=== PATIENT | female | born 1980 | race American Indian/Alaskan Native ===

== ENCOUNTER 2017-07-15 12:58 | Emergency (ER) | payer MEDICAID ==
[2017-07-15 13:13] VITALS: BP 99/60
== END 2017-07-15 18:30 | disposition left against medical advice (07) ==
LOC: ED 12:58
DX: J02.9 Acute pharyngitis, unspecified (principal); Z53.21 Procedure and treatment not carried out due to patient leaving prior to being seen by health care provider